=== PATIENT | male | born 1940 | race Caucasian/White ===

== ENCOUNTER → 2016-07-08 | Outpatient (CLI) | payer MEDICARE, BC | END | disposition home or self-care (01) | LOC: PCVCIMAG 14:36 | PROVIDERS: ATTEND Internal Medicine Cardiovascular Disease | DX: R55 Syncope and collapse (principal); E78.5 Hyperlipidemia, unspecified; I27.89 Other specified pulmonary heart diseases; I42.9 Cardiomyopathy, unspecified; I25.10 Atherosclerotic heart disease of native coronary artery without angina pectoris | CPT/HCPCS: 80061; 93005; 93880; G0463 ==

== ENCOUNTER → 2017-06-09 | Outpatient (CLI) | payer MEDICARE, BC | END | disposition home or self-care (01) | LOC: PCVCIMAG 13:30 | DX: I42.9 Cardiomyopathy, unspecified (principal); C82.80 Other types of follicular lymphoma, unspecified site; I26.99 Other pulmonary embolism without acute cor pulmonale; E78.00 Pure hypercholesterolemia, unspecified; R42 Dizziness and giddiness; R94.31 Abnormal electrocardiogram [ECG] [EKG]; R00.0 Tachycardia, unspecified; Z87.891 Personal history of nicotine dependence; Z79.82 Long term (current) use of aspirin; Z79.899 Other long term (current) drug therapy | CPT/HCPCS: 80061; 93005; 93306; G0463 ==

== ENCOUNTER → 2017-12-07 | Outpatient (CLI) | payer MEDICARE, BC | END | disposition home or self-care (01) | LOC: PCVCCLINIC 15:32 | PROVIDERS: ATTEND Internal Medicine Cardiovascular Disease | DX: I42.9 Cardiomyopathy, unspecified (principal); E78.00 Pure hypercholesterolemia, unspecified; I10 Essential (primary) hypertension; R42 Dizziness and giddiness; Z86.711 Personal history of pulmonary embolism; Z87.891 Personal history of nicotine dependence; Z79.82 Long term (current) use of aspirin; Z79.84 Long term (current) use of oral hypoglycemic drugs; Z79.4 Long term (current) use of insulin | CPT/HCPCS: 80061; 93005; G0463 ==

== ENCOUNTER → 2018-05-24 | Outpatient (CLI) | payer MEDICARE, BC | END | disposition home or self-care (01) | LOC: PCVCCLINIC 14:52 | PROVIDERS: ATTEND Internal Medicine Cardiovascular Disease | DX: I42.9 Cardiomyopathy, unspecified (principal); I10 Essential (primary) hypertension; E78.00 Pure hypercholesterolemia, unspecified; R93.1 Abnormal findings on diagnostic imaging of heart and coronary circulation; I26.99 Other pulmonary embolism without acute cor pulmonale; E11.9 Type 2 diabetes mellitus without complications; Z79.82 Long term (current) use of aspirin; Z79.4 Long term (current) use of insulin; Z87.891 Personal history of nicotine dependence | CPT/HCPCS: 36415; 80061; 93005; G0463 ==

== ENCOUNTER → 2018-12-27 | Outpatient (CLI) | payer MEDICARE, BC ==
--- NOTE | 2018-12-27 15:26 | PCVCIMAG ---
APPROVED REPORT Study performed: 12/27/2018 13:08:31 EXAM: Comprehensive 2D, Doppler, and color-flow Echocardiogram Status: routine BSA: 2.38 HR: 70 bpmBP: 148/76 mmHg Rhythm: NSR Other Information Study Quality: Adequate Risk Factors: Cardiac Risk Factors: HTN Indications Pulmonary Embolism Cardiomyopathy 2D Dimensions IVSd: 13.15 (7-11mm)LVOT Diam: 23.17 (18-24mm) LVDd: 53.29 mm PWd: 11.54 (7-11mm)Ascending Ao: 40.25 (22-36mm) LVDs: 41.23 (25-40mm) Left Atrium: 48.97 (27-40mm) Aortic Root: 36.77 mm LV Single Plane 4CH: 43.34 % LV Single Plane 2CH: 46.42 % Biplane EF: 47.3 % Volumes Left Atrial Volume (Systole) Single Plane 4CH: 98.48 mLSingle Plane 2CH: 95.31 mL LA ESV Index: 42.00 mL/m2 Aortic Valve AoV Peak Adilson.: 1.85 m/s AO Peak Gr.: 13.68 mmHgLVOT Max P.68 mmHg AO Mean Gr.: 6.95 mmHgLVOT Mean P.81 mmHg AO V2 Mean: 1.26 m/sLVOT Max V: 0.96 m/s AO V2 VTI: 34.95 cmLVOT Mean V: 0.63 m/s YANELIS (VTI): 2.83 [id number] V1 VTI: 23.45 cm YANELIS Vmax: 2.19 cm2 SV (LVOT): 98.85 mL Mitral Valve E/A Ratio: 0.6 MV Decel. Time: 308.40 ms MV E Max Adilson.: 0.70 m/s MV A Adilson.: 1.08 m/s IVRT: 100.35 ms Pulmonary Valve PV Peak Adilson.: 0.94 m/sPV Peak Gr.: 3.53 mmHg Pulmonary Vein P Vein S: 0.27 m/sP Vein A: 0.35 m/s P Vein D: 0.34 m/sP Vein A Dur.: 117.6 msec P Vein S/D Ratio: 0.79 Tricuspid Valve TR Peak Adilson.: 2.91 m/s TR Peak Gr.: 33.93 mmHg TV Vmax: 0.54 m/s Left Ventricle The left ventricle is normal size. There is normal LV segmental wall motion. Mild concentric left ventricular hypertrophy. Left ventricular systolic function is mildly decreased. LVEF is 45%. Grade I - abnormal relaxation pattern. Right Ventricle The right ventricle is normal size. The right ventricular systolic function is normal. Atria Left atrium is moderately dilated. Right atrium is mildly dilated. Aortic Valve Mild aortic valve sclerosis. No aortic regurgitation is present. There is no aortic valvular stenosis. Mitral Valve The mitral valve is normal in structure. Trace mitral regurgitation. No evidence of mitral valve stenosis. Tricuspid Valve The tricuspid valve is normal in structure. Mild tricuspid regurgitation with PAP of 41 mmHg. Pulmonic Valve The pulmonary valve is normal in structure. There is no pulmonic valvular regurgitation. Great Vessels The aortic root is normal in size. IVC is normal in size and collapses >50% with inspiration. Pericardium There is no pericardial effusion. There is no pleural effusion. <Conclusion> The left ventricle is normal size. Mild concentric left ventricular hypertrophy. LVEF is 45%. Grade I - abnormal relaxation pattern. The right ventricle is normal size. Left atrium is moderately dilated. Right atrium is mildly dilated. Mild aortic valve sclerosis. There is no aortic valvular stenosis. Trace mitral regurgitation. Mild tricuspid regurgitation with PAP of 41 mmHg. The aortic root is normal in size. There is no pericardial effusion.
== END | disposition home or self-care (01) ==
LOC: PCVCIMAG 13:26
PROVIDERS: ATTEND Internal Medicine Cardiovascular Disease
DX: I08.3 Combined rheumatic disorders of mitral, aortic and tricuspid valves (principal); I42.9 Cardiomyopathy, unspecified; E78.00 Pure hypercholesterolemia, unspecified; I10 Essential (primary) hypertension; E11.9 Type 2 diabetes mellitus without complications; R93.1 Abnormal findings on diagnostic imaging of heart and coronary circulation; Z79.82 Long term (current) use of aspirin
CPT/HCPCS: 36415; 80061; 93005; 93306; G0463